=== PATIENT | female | born 2000 | race American Indian/Alaskan Native ===

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

== ENCOUNTER 2018-11-19 10:16 | Inpatient (IN) | payer OTHER ==
[~2018-11-19 10:16] MED LIST: Bupivacaine 0.25% 10 ML SDV ONE
[2018-11-19] MEDS ORDERED: Betamethasone Acetate/Betamethasone Sod Phosphate 30 MG/5 ML MDV IM ONE (10:24)
[2018-11-19] MEDS ORDERED: Nalbuphine 10 MG/1 ML Vial IVPUSH PRN (10:24)
[2018-11-19] MEDS ORDERED: Ondansetron 4 MG/2 ML SDV IVPUSH PRN ×2 (10:24→23:24)
[2018-11-19] MEDS ORDERED: Sodium Chloride 0.9% 10 ML Syringe FLUSH PRN ×2 (10:24→22:39)
[2018-11-19] MEDS ORDERED: Oxytocin/Lactated Ringers 10 UNIT/1,000 ML BAG IV SCH ×2 (10:30→22:28)
[2018-11-19] MEDS ORDERED: Ampicillin 2 GM in Sodium Chloride 0.9% 100 ML IV ONE (10:30)
[2018-11-19] MEDS ORDERED: Ampicillin 2 GM AdvVial IV ONE (10:32)
[2018-11-19] MEDS ORDERED: Sodium Chloride 0.9% 100 ML ONE (10:32)
[2018-11-19] MEDS ORDERED: Betamethasone Acetate/Betamethasone Sod Phosphate 30 MG/5 ML MDV ONE (10:34)
[2018-11-19] MEDS: Lactated Ringers 1,000 ML IV SCH ×4 (10:40→20:17)
[2018-11-19] MEDS ORDERED: ePHEDrine 50 MG/ML SDV IVPUSH PRN (11:36)
[2018-11-19] MEDS ORDERED: fentaNYL 100 MCG/2 ML SDV EPIDUR PRN (11:36)
[2018-11-19] MEDS ORDERED: diphenhydrAMINE 50 MG/ML SDV IVPUSH PRN ×2 (11:36→23:24)
[2018-11-19] MEDS: Bupivacaine/fentaNYL/NS 100 ML Bag EPIDUR PRN ×2 (12:07→17:57)
--- NOTE | 2018-11-19 12:10 | PCM.PREANE ---
Preanesthetic Assessment - Procedure Proposed Procedure: kalpesh - Anesthesia/Transfusion/Family Hx Anesthesia History: Prior Anesthesia Without Reaction Family History of Anesthesia Reaction: No Transfusion History: No Prior Transfusion(s) - Review of Systems General: No Symptoms Pulmonary: No Symptoms Cardiovascular: No Symptoms Gastrointestinal: No Symptoms Neurological: No Symptoms Other: Reports: None - Physical Assessment Pulse: 70 O2 Sat by Pulse Oximetry: 99 Respiratory Rate: 20 Blood Pressure: 109/60 Height: 5 ft 6 in Weight: 70.307 kg ASA Class: 2 Mental Status: Alert & Oriented x3 Airway Class: Mallampati = 1 Dentition: Reports: Normal Dentition Thyro-Mental Finger Breadths: 3 Mouth Opening Finger Breadths: 3 ROM/Head Extension: Full Lungs: Clear to Auscultation, Normal Respiratory Effort Cardiovascular: Regular Rate, Regular Rhythm - Lab Values: Laboratory Last Values WBC 11.88 K/mm3 (3.98-10.04) H 11/19/18 10:40 RBC 3.89 M/mm3 (3.98-5.22) L 11/19/18 10:40 Hgb 10.4 gm/L (11.2-15.7) L 11/19/18 10:40 Hct 32.0 % (34.1-44.9) L 11/19/18 10:40 MCV 82.3 fl (79.4-94.8) 11/19/18 10:40 MCH 26.7 pg (25.6-32.2) 11/19/18 10:40 MCHC 32.5 g/dl (32.2-35.5) 11/19/18 10:40 RDW Std Deviation 42.7 fL (36.4-46.3) 11/19/18 10:40 Plt Count 288 K/mm3 (182-369) 11/19/18 10:40 MPV 9.3 fl (9.4-12.3) L 11/19/18 10:40 Hepatitis C Antibody Negative (NEGATIVE) 11/19/18 10:40 HIV-1 Ab Rapid Screen Negative (NEGATIVE) 11/19/18 10:40 Blood Type A POSITIVE 11/19/18 10:40 Gel Antibody Screen Negative 11/19/18 10:40 - Allergies Allergies/Adverse Reactions: Allergies Allergy/AdvReac Type Severity Reaction Status Date / Time avocado Allergy Hives Verified 09/29/17 07:33 banana Allergy Hives Verified 09/29/17 07:33 kiwi Allergy Hives Verified 09/29/17 07:33 raspberry Allergy Hives Verified 09/29/17 07:33 shrimp Allergy Hives Verified 09/29/17 07:33 strawberry Allergy Hives Verified 09/29/17 07:33 tuna oil Allergy Hives Verified 09/29/17 07:33 - Blood Blood Available: No - Acknowledgements Anesthesia Type Planned: Epidural Pt an Appropriate Candidate for the Planned Anesthesia: Yes Alternatives and Risks of Anesthesia Discussed w Pt/Guardian: Yes Pt/Guardian Understands and Agrees with Anesthesia Plan: Yes PreAnesthesia Questionnaire - Past Health History Medical/Surgical History: Denies Medical/Surgical History HEENT History: Reports: Allergic Rhinitis Cardiovascular History: Reports: None Respiratory History: Reports: Asthma Gastrointestinal History: Reports: GERD 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: 1 - Past Surgical History HEENT Surgical History: Reports: Oral Surgery - SUBSTANCE USE Smoking Status *Q: Current Every Day Smoker Tobacco Use Within Last Twelve Months: Cigarettes Second Hand Smoke Exposure: Yes Days Per Week of Alcohol Use: 0 Recreational Drug Use History: No - HOME MEDS Home Medications: Home Meds PNV95/Ferrous Fumarate/FA [ Vitamin Tablet] 1 each PO DAILY 09/29/17 [ History] Docusate Sodium [Colace] 100 mg PO BID PRN cap 10/01/17 [Rx] Ibuprofen [IJD: Ibuprofen] 600 mg PO Q4H PRN tablet 10/01/17 [Rx] Witch Ashley [Tucks] 1 pad TOP ASDIRECTED PRN pad 10/01/17 [Rx] - CURRENT (IN HOUSE) MEDS Current Meds: Current Medications Diphenhydramine HCl (Benadryl) 25 mg IVPUSH Q6H PRN PRN Reason: pruritis Ephedrine Sulfate (Ephedrine Sulfate) 5 mg IVPUSH ASDIRECTED PRN PRN Reason: Hypotension Fentanyl (Sublimaze) 100 mcg EPIDUR Q3H PRN PRN Reason: Pain Last Admin: 11/19/18 12:06 Dose: 100 mcg Fentanyl/Bupivacaine HCl (Fentanyl/Bupivacaine/Ns 2 Mcg-0.125% 100 Ml) 100 ml EPIDUR ASDIRECTED PRN PRN Reason: Pain Last Admin: 11/19/18 12:07 Dose: 100 ml Ampicillin Sodium 1 gm/ Sodium (Chloride) 100 mls @ 200 mls/hr IV Q4H JUNG Lactated Ringer's (Ringers, Lactated) 1,000 mls @ 100 mls/hr IV ASDIRECTED JUNG Last Admin: 11/19/18 11:32 Dose: 100 mls/hr Oxytocin/Lactated Ringer's (Pitocin In Lr 10 Units/1,000 Ml) 10 unit in 1,000 mls @ 500 mls/hr IV .CONTINUOUS JUNG Nalbuphine HCl (Nubain) 10 mg IVPUSH Q2H PRN PRN Reason: Pain Last Admin: 11/19/18 10:39 Dose: 10 mg Ondansetron HCl (Zofran) 4 mg IVPUSH Q4H PRN PRN Reason: Nausea/Vomiting Sodium Chloride (Saline Flush) 10 ml FLUSH ASDIRECTED PRN PRN Reason: Keep Vein Open Discontinued Medications Ampicillin Sodium (Ampicillin) Confirm Administered Dose 2 gm IV .STK-MED ONE Stop: 11/19/18 10:33 Betamethasone Acet/Betameth SodPhos ([place] Soluspan 6 Mg/Ml) 12 mg IM ONETIME ONE Stop: 11/19/18 10:25 Last Admin: 11/19/18 10:46 Dose: 12 mg Betamethasone Acet/Betameth SodPhos ([place] Soluspan 6 Mg/Ml) Confirm Administered Dose 30 mg .ROUTE .[employer] ONE Stop: 11/19/18 10:35 Ampicillin Sodium 2 gm/ Sodium (Chloride) 100 mls @ 200 mls/hr IV ONETIME ONE Stop: 11/19/18 10:59 Last Admin: 11/19/18 10:39 Dose: 200 mls/hr Sodium Chloride (Normal Saline) Confirm Administered Dose 100 mls @ as directed .ROUTE .[employer] ONE Stop: 11/19/18 10:33
--- NOTE | 2018-11-19 12:57 | PCM.LDHP ---
L&D History of Present Illness - General Date of Service: 11/19/18 Admit Problem/Dx: Patient Status Order with Admit Dx/Problem 11/19/18 10:25 Patient Status [ADT] Routine Admission Diagnosis/Problem Admission Diagnosis/Problem labor Source of Information: Patient History Limitations: Reports: No Limitations - History of Present Illness Introduction:: Patient is a 17 y/o at uncertain gestational age who presents in labor. Patient's first was without care, but eventual delivery of a 3.13 kg baby girl presumed to be full term. This was in 09/2017. Patient without care in this . States did have a few appointments in [place], but when that clinic called they have only scant information. They do have it documented that her LMP was 01/07. This would make her 45 weeks gestation at this time. They have a positive test on May 07 which was done as patient noted 3 months of amenorrhea. They have no other test results or information on her. Patient presented to L&D yesterday due to concerns for contractions. At that time US was done which showed a baby measuring at about 35 0/7 wks and with oligohydramnios and fluid of only 2 cm. A urine drug screen was positive for opiates. Eventually she was discharged to home once contractions resolved. Called an ambulance today as she was having regular painful contractions. When arrived to L&D appeared very uncomfortable and so was admitted. Now comfortable with epidural in place. Pain Score: 10 - Related Data Allergies/Adverse Reactions: Allergies Allergy/AdvReac Type Severity Reaction Status Date / Time avocado Allergy Hives Verified 11/19/18 15:17 banana Allergy Hives Verified 11/19/18 15:17 kiwi Allergy Hives Verified 11/19/18 15:17 raspberry Allergy Hives Verified 11/19/18 15:17 shrimp Allergy Hives Verified 11/19/18 15:17 strawberry Allergy Hives Verified 11/19/18 15:17 tuna oil Allergy Hives Verified 11/19/18 15:17 Home Medications: Home Meds PNV95/Ferrous Fumarate/FA [ Vitamin Tablet] 1 each PO DAILY 09/29/17 [ History] Past Medical History HEENT History: Reports: Allergic Rhinitis Respiratory History: Reports: Asthma Gastrointestinal History: Reports: GERD 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 LMP (Approximate): Psychiatric History: Reports: Anxiety - Past Surgical History HEENT Surgical History: Reports: Oral Surgery, Other (See Below) (tympanostomy) Social & Family History - Family History Family Medical History: Noncontributory - Tobacco Use Smoking Status *Q: Current Every Day Smoker Second Hand Smoke Exposure: Yes - Caffeine Use Caffeine Use: Reports: Coffee, Energy Drinks, Soda, Tea - Alcohol Use Alcohol Use History: No Days Per Week of Alcohol Use: 0 - Recreational Drug Use Recreational Drug Use: No - Living Situation & Occupation Living situation: Reports: Single, with Family Occupation: Employed H&P Review of Systems - Review of Systems: Review Of Systems: See Below General: Reports: No Symptoms Pulmonary: Reports: No Symptoms Cardiovascular: Reports: No Symptoms Gastrointestinal: Reports: No Symptoms Genitourinary: Reports: No Symptoms Musculoskeletal: Reports: No Symptoms Psychiatric: Reports: No Symptoms L&D Exam - Exam Exam: See Below - Vital Signs Vital Signs: Last Vital Signs Temp Pulse 70 11/19/18 12:10 Resp 20 11/19/18 12:10 BP 109/60 11/19/18 12:10 Pulse Ox 99 11/19/18 12:10 Weight: 70.307 kg - OB Specific Contraction Intensity: Moderate to Strong Movement: Active Heart Tones: Present Heart Tones per Min: 130 Heart Rate (FHR) Variability: Moderate (6-25 bmp) Presentation: Vertex - Bhatt Score Bhatt Score Cervix Position: Midposition Bhatt Score Consistency: Soft Bhatt Score Effacement: >80% Bhatt Score Dilation: > 5 cm Bhatt Score Infant's Station: -2 Bhatt Score Total: 10 - Exam General: Alert, Oriented, Cooperative Lungs: Clear to Auscultation, Normal Respiratory Effort Cardiovascular: Regular Rate, Regular Rhythm GI/Abdominal Exam: Soft, Non-Tender Genitourinary: Normal external exam Extremities: Normal Inspection Skin: Warm, Dry, Intact - Patient Data Lab Results Last 24 hrs: Laboratory Results - last 24 hr 11/19/18 11/19/18 11/19/18 Range/Units 10:40 10:40 10:40 WBC 11.88 H (3.98-10.04) K/mm3 RBC 3.89 L (3.98-5.22) M/mm3 Hgb 10.4 L (11.2-15.7) gm/L Hct 32.0 L (34.1-44.9) % MCV 82.3 (79.4-94.8) fl MCH 26.7 (25.6-32.2) pg MCHC 32.5 (32.2-35.5) g/dl RDW Std Deviation 42.7 (36.4-46.3) fL Plt Count 288 (182-369) K/mm3 MPV 9.3 L (9.4-12.3) fl Hepatitis C Antibody Negative (NEGATIVE) HIV-1 Ab Rapid Screen Negative (NEGATIVE) Blood Type A POSITIVE Gel Antibody Screen Negative Result Diagrams: 11/19/18 10:40 - Problem List (1) Currently in third trimester with unknown gestational age SNOMED Code(s): 932831527, 840871599 ICD Code: Z34.93 - ENCNTR FOR SUPRVSN OF NORMAL PREG, UNSP, THIRD TRIMESTER Status: Acute Current Visit: Yes (2) Insufficient care SNOMED Code(s): 2176148777716 ICD Code: O09.30 - SUPRVSN OF PREG W INSUFFICIENT ANTENAT CARE, UNSP TRIMESTER Status: Acute Current Visit: Yes Qualifiers: Trimester: third trimester Qualified Code(s): O09.33 - Supervision of with insufficient care, third trimester (3) Positive urine drug screen SNOMED Code(s): 839922885, 065125476, 169908993 ICD Code: R82.5 - ELEVATED URINE LEVELS OF DRUG/MEDS/BIOL SUBST Status: Acute Current Visit: Yes Problem List Initiated/Reviewed/Updated: Yes Orders Last 24hrs: Active Orders 24 hr Category Date Time Status Patient Status [ADT] Routine ADT 11/19/18 10:25 Active Activity as Tolerated [RC] PFP Care 11/19/18 10:25 Active Communication Order [RC] ASDIRECTED Care 11/19/18 10:25 Active Heart Tones [RC] ASDIRECTED Care 11/19/18 10:25 Active Non Stress Test [RC] PER UNIT ROUTINE Care 11/19/18 10:25 Active Notify Provider [RC] ASDIRECTED Care 11/19/18 11:36 Active Notify Provider [RC] PFP Care 11/19/18 10:25 Active Notify Provider [RC] PRN Care 11/19/18 10:25 Active Peripheral IV Care [RC] . DIRECTED Care 11/19/18 10:25 Active Vital Signs [RC] PER UNIT ROUTINE Care 11/19/18 10:25 Active Regular Diet [DIET] Diet 11/19/18 Breakfast Active DRUG SCREEN, URINE REFLEX [URCHEM] Routine Lab 11/19/18 11:20 Received GROUP B STREP BY PCR [MOLEC] Stat Lab 11/19/18 10:43 Received HEPATITIS B SURFACE AG [CHEM] Routine Lab 11/19/18 10:40 Received RAPID PLASMA REAGIN,RPR [CHEM] Routine Lab 11/19/18 10:40 Received RUBELLA ANTIBODY IGG [CHEM] Routine Lab 11/19/18 10:40 Received Ampicillin 1 gm Med 11/19/18 14:30 Active Sodium Chloride 0.9% [Normal Saline] 100 ml IV Q4H Bupivacaine/fentaNYL/NS [fentaNYL/Bupivacaine/NS 2 MCG- Med 11/19/18 11:36 Active 0.125% 100 ML] 100 ml EPIDUR ASDIRECTED PRN Lactated Ringers [Ringers, Lactated] 1,000 ml Med 11/19/18 10:30 Active IV ASDIRECTED Nalbuphine [Nubain] Med 11/19/18 10:24 Active 10 mg IVPUSH Q2H PRN Ondansetron [Zofran] Med 11/19/18 10:24 Active 4 mg IVPUSH Q4H PRN Oxytocin/Lactated Ringers [Pitocin in LR 10 Units/1,000 Med 11/19/18 10:30 Active ML] 10 unit in 1,000 ml IV .CONTINUOUS Sodium Chloride 0.9% [Saline Flush] Med 11/19/18 10:24 Active 10 ml FLUSH ASDIRECTED PRN diphenhydrAMINE [Benadryl] Med 11/19/18 11:36 Active 25 mg IVPUSH Q6H PRN ePHEDrine [ePHEDrine sulfate] Med 11/19/18 11:36 Active 5 mg IVPUSH ASDIRECTED PRN fentaNYL [Sublimaze] Med 11/19/18 11:36 Active 100 mcg EPIDUR Q3H PRN Electronic Heart Tones Ext w TOCO [WOMSER] Oth 11/19/18 10:25 Ordered Routine Electronic Heart Tones Internal [WOMSER] Per Unit Oth 11/19/18 10:25 Ordered Routine Peripheral IV Insertion Adult [OM.PC] Routine Oth 11/19/18 10:25 Ordered Resuscitation Status Routine Resus Stat 11/19/18 10:24 Ordered Medication Orders Diphenhydramine HCl (Benadryl) 25 mg IVPUSH Q6H PRN PRN Reason: pruritis Ephedrine Sulfate (Ephedrine Sulfate) 5 mg IVPUSH ASDIRECTED PRN PRN Reason: Hypotension Last Admin: 11/19/18 12:36 Dose: 5 mg Fentanyl (Sublimaze) 100 mcg EPIDUR Q3H PRN PRN Reason: Pain Last Admin: 11/19/18 12:06 Dose: 100 mcg Fentanyl/Bupivacaine HCl (Fentanyl/Bupivacaine/Ns 2 Mcg-0.125% 100 Ml) 100 ml EPIDUR ASDIRECTED PRN PRN Reason: Pain Last Admin: 11/19/18 12:07 Dose: 100 ml Ampicillin Sodium 1 gm/ Sodium (Chloride) 100 mls @ 200 mls/hr IV Q4H JUNG Lactated Ringer's (Ringers, Lactated) 1,000 mls @ 100 mls/hr IV ASDIRECTED JUNG Last Admin: 11/19/18 11:32 Dose: 100 mls/hr Infusion: 11/19/18 11:32 Dose: 100 mls/hr Admin: 11/19/18 10:40 Dose: 100 mls/hr Oxytocin/Lactated Ringer's (Pitocin In Lr 10 Units/1,000 Ml) 10 unit in 1,000 mls @ 500 mls/hr IV .CONTINUOUS JUNG Nalbuphine HCl (Nubain) 10 mg IVPUSH Q2H PRN PRN Reason: Pain Last Admin: 11/19/18 10:39 Dose: 10 mg Ondansetron HCl (Zofran) 4 mg IVPUSH Q4H PRN PRN Reason: Nausea/Vomiting Sodium Chloride (Saline Flush) 10 ml FLUSH ASDIRECTED PRN PRN Reason: Keep Vein Open Assessment/Plan Comment:: 17 y/o at uncertain gestational age (35 weeks based on US, possibly up to term based on LMP) who presents in labor. Given degree of discomfort it was decided to not transfer patient on to [place] as there was concern for quick delivery given multiparous. GBS swab was collected and she was started on Ampicillin given possibility of being . Also given dose of BMTZ as uncertain of dates. Full new ob lab panel completed. Repeat UDS today as was positive for opiates yesterday. Patient did make change form 3 cm to 5 cm on my assessment. Will defer AROM for now. Will potentially perform later in labor course if needed.
[2018-11-19] MEDS: Ampicillin 1 GM in Sodium Chloride 0.9% 100 ML IV SCH ×3 (14:45→21:55)
--- NOTE | 2018-11-19 16:31 | PCM.PNLD ---
Labor Progress Note - VS & Meds Vital Signs: Last Vital Signs Temp 36.4 C 11/19/18 10:25 Pulse 72 11/19/18 14:00 Resp 20 11/19/18 12:10 BP 113/67 11/19/18 14:00 Pulse Ox 99 11/19/18 12:10 Active Medications: Current Medications Diphenhydramine HCl (Benadryl) 25 mg IVPUSH Q6H PRN PRN Reason: pruritis Ephedrine Sulfate (Ephedrine Sulfate) 5 mg IVPUSH ASDIRECTED PRN PRN Reason: Hypotension Last Admin: 11/19/18 12:36 Dose: 5 mg Fentanyl (Sublimaze) 100 mcg EPIDUR Q3H PRN PRN Reason: Pain Last Admin: 11/19/18 12:06 Dose: 100 mcg Fentanyl/Bupivacaine HCl (Fentanyl/Bupivacaine/Ns 2 Mcg-0.125% 100 Ml) 100 ml EPIDUR ASDIRECTED PRN PRN Reason: Pain Last Admin: 11/19/18 12:07 Dose: 100 ml Ampicillin Sodium 1 gm/ Sodium (Chloride) 100 mls @ 200 mls/hr IV Q4H JUNG Last Admin: 11/19/18 14:45 Dose: 200 mls/hr Lactated Ringer's (Ringers, Lactated) 1,000 mls @ 100 mls/hr IV ASDIRECTED JUNG Last Admin: 11/19/18 14:46 Dose: 100 mls/hr Oxytocin/Lactated Ringer's (Pitocin In Lr 10 Units/1,000 Ml) 10 unit in 1,000 mls @ 500 mls/hr IV .CONTINUOUS [facility] Nalbuphine HCl (Nubain) 10 mg IVPUSH Q2H PRN PRN Reason: Pain Last Admin: 11/19/18 10:39 Dose: 10 mg Ondansetron HCl (Zofran) 4 mg IVPUSH Q4H PRN PRN Reason: Nausea/Vomiting Last Admin: 11/19/18 15:27 Dose: 4 mg Sodium Chloride (Saline Flush) 10 ml FLUSH ASDIRECTED PRN PRN Reason: Keep Vein Open Discontinued Medications Ampicillin Sodium (Ampicillin) Confirm Administered Dose 2 gm IV .STK-MED ONE Stop: 11/19/18 10:33 Last Admin: 11/19/18 14:46 Dose: Not Given Betamethasone Acet/Betameth SodPhos (Celestone Soluspan 6 Mg/Ml) 12 mg IM ONETIME ONE Stop: 11/19/18 10:25 Last Admin: 11/19/18 10:46 Dose: 12 mg Betamethasone Acet/Betameth SodPhos (Celestone Soluspan 6 Mg/Ml) Confirm Administered Dose 30 mg .ROUTE .STK-MED ONE Stop: 11/19/18 10:35 Last Admin: 11/19/18 14:46 Dose: Not Given Ampicillin Sodium 2 gm/ Sodium (Chloride) 100 mls @ 200 mls/hr IV ONETIME ONE Stop: 11/19/18 10:59 Last Admin: 11/19/18 10:39 Dose: 200 mls/hr Sodium Chloride (Normal Saline) Confirm Administered Dose 100 mls @ as directed .ROUTE .STK-MED ONE Stop: 11/19/18 10:33 Last Admin: 11/19/18 14:46 Dose: Not Given - Uterine Contractions Uterine Monitoring Mode: External [place] Contraction Intensity: Moderate to Strong Uterine Resting Tone: Soft - Monitoring Monitor Mode: External Ultrasound Heart Rate (FHR) Baseline: 130 Heart Rate (FHR) Variability: Moderate (6-25 bmp) Accelerations: Present, 15x15 Decelerations: None Strip Review: Category I - Vaginal Exam Dilation (cm): 6-7 Effacement (Percent): 75 Station: -2 Cervical Position: Midposition - Labor Progress (Free Text) Labor Progress: Doing well. AROM performed with release of scant amount of thick meconium stained fluid
[2018-11-19] MEDS ORDERED: ceFAZolin 2 GM in Premix Bag 1 BAG IV ONE (22:39)
[2018-11-19] MEDS ORDERED: Metoclopramide 10 MG/2 ML SDV IVPUSH ONE (22:39)
[2018-11-19] MEDS ORDERED: Citric Acid/Sodium Citrate Solution 30 ML Cup PO ONE (22:39)
--- NOTE | 2018-11-19 22:41 | PCM.SN ---
- Free Text/Narrative Note: [id number] Patient feeling strong urge to push, but with small anterior lip. Was allowed to push for about 30 minutes, but anterior lip at that time did not stay reduced. Was moved into other positions and tried to make more comfortable and a break taken from pushing for about 30 minutes. Reassessed and anterior lip gone. Started pushing again, but only pushed for about 40 minutes or so before declined pushing further. States tired and does not want to push any further. Wants a . Strongly encouraged patient to continue working towards vaginal delivery, but she declines. OR crew alerted. Comfort Lincoln MD
[2018-11-19] MEDS ORDERED: Lactated Ringers 1,000 ML IV SCH (22:45)
--- NOTE | 2018-11-19 22:50 | PCM.OPNOTE ---
- General Post-Op/Procedure Note Date of Surgery/Procedure: 11/19/18 Operative Procedure(s): Primary low transverse Findings: Baby boy in a vertex presentation. of 9 & 9, weight of 6 lbs 1 oz. Normal appearance of the uterus, fallopian tubes, and ovaries. Pre Op Diagnosis: Uncertain dates in 3rd trimester. Insufficient care. Meconium stained fluid. FTP in 2nd stage Post-Op Diagnosis: Same. Uterine atony Anesthesia Technique: Epidural Primary Surgeon: Comfort Lincoln Secondary Surgeon: Francine Tate Anesthesia Provider: Deborah Alarcon Reason Hoop Bender Tank Was Necessary: Speed and safety of procedure Pathology: Cord blood collected. Placenta discarded Fluid Replacement, Intraop: 1,700 Output, Urine Amount: 75 EBL in mLs: 700 Complications: None Condition: Good Free Text/Narrative:: The risks, benefits, indications, potential complications, and alternatives were explained to the patient and informed consent obtained. After induction of anesthesia, the patient was placed in a supine position and then draped and prepped in the usual sterile manner. A Pfannenstiel incision was made and carried down through the subcutaneous tissue to the fascia. Fascial incision was made and extended transversely. The fascia was from the underlying rectus tissue superiorly and inferiorly. The peritoneum was identified and entered. Peritoneal incision was extended longitudinally. The utero-vesical peritoneal reflection was incised transversely and the bladder flap was bluntly freed from the lower uterine segment. A low transverse uterine incision was made sharply with a scalpel and extended bluntly in a cephalocaudad direction. A baby boy was delivered from a vertex presentation with APGARS as above. After the umbilical cord was clamped and cut cord blood was obtained for evaluation. The placenta was removed intact and appeared normal. The uterus was exteriorized and cleared of clots. The uterine outline, tubes and ovaries appeared normal. The was very poor uterine tone at this time. The uterine incision was closed with running locked sutures of 0 Vicryl. Despite this uterine tone remained poor. Patient given an IM dose of methergine. Next second imbricating layer of 0 vicryl placed. Hemostasis noted. Again, poor lower uterine segment tone noted and so patient given 600 mcg of buccal cytotec. The uterus was then placed back into the abdomen. The infracolic gutters were cleared of blood clots. The fascia was then reapproximated with running sutures of 0 Vicryl. The subcutaneous tissue was irrigated with sterile warm normal saline, hemostasis obtained with cautery. The skin was reapproximated with running Subcuticular 4 -0 monocryl sutures. Instrument, sponge, and needle counts were correct prior the abdominal closure and at the conclusion of the case. Prior to exiting OR aggressive fundal massage done which released a large amount of clot. Uterine tone and bleeding appropriate afterwards.
[2018-11-19] MEDS ORDERED: Oxytocin 10 Units/1 ML SDV ONE (22:51)
[2018-11-19] MEDS ORDERED: Ketorolac 30 MG/ML SDV ONE (22:51)
[2018-11-19] MEDS ORDERED: Ondansetron 4 MG/2 ML SDV ONE (22:51)
[2018-11-19] MEDS ORDERED: Lactated Ringers 2,000 ML ONE (22:51)
[2018-11-19] MEDS ORDERED: ceFAZolin 1 GM Vial ONE (22:51)
[2018-11-19] MEDS ORDERED: Sodium Bicarbonate 8.4% 50 MEQ/50 ML SDV ONE (22:52)
[2018-11-19] MEDS ORDERED: Lidocaine 2% with EPINEPHrine 1:200,000 20 ML SDV ONE (22:52)
[2018-11-19] MEDS ORDERED: fentaNYL 100 MCG/2 ML SDV ONE (22:53)
[2018-11-19] MEDS ORDERED: Morphine PF 1 MG/ML Amp ONE (22:56)
[2018-11-19] MEDS ORDERED: ePHEDrine/Normal Saline 25 MG/5 ML Syringe ONE (23:17)
[2018-11-19] MEDS ORDERED: fentaNYL 100 MCG/2 ML SDV IVPUSH PRN (23:24)
[2018-11-19] MEDS ORDERED: Methylergonovine 0.2 MG/1 ML Amp ONE (23:35)
[2018-11-19] MEDS ORDERED: Misoprostol 200 MCG Tab ONE (23:40)
--- NOTE | 2018-11-20 00:20 | PCM.POSTAN ---
POST ANESTHESIA ASSESSMENT - MENTAL STATUS Mental Status: Alert, Oriented - VITAL SIGNS Pulse Rate: 81 SaO2: 100 Resp Rate: 18 Blood Pressure: 129/75 Temperature: 98.7 F - RESPIRATORY Respiratory Status: Respiratory Rate WNL, Airway Patent, O2 Saturation Stable, Supplemental Oxygen - CARDIOVASCULAR CV Status: Pulse Rate WNL, Blood Pressure Stable - GASTROINTESTINAL GI Status: No Symptoms - PAIN Pain Score: 0 - POST OP HYDRATION Hydration Status: Adequate & Stable
[2018-11-20] MEDS ORDERED: Ondansetron 4 MG/2 ML SDV IV PRN (01:15)
[2018-11-20] MEDS ORDERED: Docusate Sodium 100 MG Cap PO PRN (01:15)
[2018-11-20] MEDS ORDERED: Lanolin 100% Cream 7 GM Tube TOP PRN (01:15)
[2018-11-20] MEDS ORDERED: Dextrose 5%-Lactated Ringers 1,000 ML IV SCH (01:15)
[2018-11-20] MEDS: Acetaminophen/oxyCODONE 325-5 MG Tab PO PRN ×4 (04:47→21:47)
[2018-11-20] MEDS: Ketorolac 30 MG/ML SDV IVPUSH SCH ×3 (05:32→17:32)
--- NOTE | 2018-11-20 07:36 | PCM48HPAN ---
Post Anesthesia Note - EVALUATION WITHIN 48HRS OF ANESTHETIC Vital Signs in Normal Range: Yes Patient Participated in Evaluation: Yes Respiratory Function Stable: Yes Airway Patent: Yes Cardiovascular Function Stable: Yes Hydration Status Stable: Yes Pain Control Satisfactory: Yes Nausea and Vomiting Control Satisfactory: Yes Mental Status Recovered: Yes Pulse Rate: 106 Resp Rate: 16 Temperature: 37.1 C Blood Pressure: 119/60
--- NOTE | 2018-11-20 09:16 | PCM.PNPP ---
- General Info Date of Service: 11/20/18 Functional Status: Reports: Pain Controlled, Tolerating Diet - Review of Systems General: Reports: No Symptoms Pulmonary: Reports: No Symptoms Cardiovascular: Reports: No Symptoms Gastrointestinal: Reports: Abdominal Pain Genitourinary: Reports: No Symptoms Musculoskeletal: Reports: No Symptoms Neurological: Reports: No Symptoms - Patient Data Vital Signs - Most Recent: Last Vital Signs Temp 37.1 C 11/20/18 07:36 Pulse 106 H 11/20/18 07:36 Resp 16 11/20/18 07:36 BP 119/60 11/20/18 07:36 Pulse Ox 98 11/20/18 07:00 Weight - Most Recent: 70.307 kg I&O - Last 24 Hours: Intake & Output 11/19/18 11/20/18 11/20/18 22:59 06:59 14:59 Intake Total 883 320 3754 Output Total 1075 75 Balance 320 -825 1625 Lab Results - Last 24 Hours: Laboratory Results - last 24 hr 11/19/18 11/19/18 11/19/18 Range/Units 10:40 10:40 10:40 WBC 11.88 H (3.98-10.04) K/mm3 RBC 3.89 L (3.98-5.22) M/mm3 Hgb 10.4 L (11.2-15.7) gm/L Hct 32.0 L (34.1-44.9) % MCV 82.3 (79.4-94.8) fl MCH 26.7 (25.6-32.2) pg MCHC 32.5 (32.2-35.5) g/dl RDW Std Deviation 42.7 (36.4-46.3) fL Plt Count 288 (182-369) K/mm3 MPV 9.3 L (9.4-12.3) fl Urine Opiates Screen (IWCADX=673) Ur Buprenorphine Scrn (CUTOFF=10) Ur Oxycodone Screen (PZC6UK=709) Urine Methadone Screen (RSXZIO=388) Ur Propoxyphene Screen (FONNYT=296) Ur Barbiturates Screen (KQARSF=302) Ur Tricyclics Screen (SPYQKA=244) Ur Phencyclidine Scrn (CUTOFF=25) Ur Amphetamine Screen (VYMFRW=212) U Methamphetamines Scrn (EOOZUY=957) U Benzodiazepines Scrn (FESKQJ=935) U Cocaine Metab Screen (ZBWSIO=041) U Marijuana (THC) Screen (CUTOFF=50) RPR (NONREACTIVE) Hepatitis C Antibody Negative (NEGATIVE) HIV-1 Ab Rapid Screen Negative (NEGATIVE) Blood Type A POSITIVE Gel Antibody Screen Negative 11/19/18 11/19/18 Range/Units 10:40 11:20 WBC (3.98-10.04) K/mm3 RBC (3.98-5.22) M/mm3 Hgb (11.2-15.7) gm/L Hct (34.1-44.9) % MCV (79.4-94.8) fl MCH (25.6-32.2) pg MCHC (32.2-35.5) g/dl RDW Std Deviation (36.4-46.3) fL Plt Count (182-369) K/mm3 MPV (9.4-12.3) fl Urine Opiates Screen Negative (MNWIEZ=595) Ur Buprenorphine Scrn Negative (CUTOFF=10) Ur Oxycodone Screen Negative (XBO3VN=228) Urine Methadone Screen Negative (YTQWDV=996) Ur Propoxyphene Screen Negative (WFMRLC=119) Ur Barbiturates Screen Negative (BZVOQZ=128) Ur Tricyclics Screen Negative (NXLXXP=534) Ur Phencyclidine Scrn Negative (CUTOFF=25) Ur Amphetamine Screen Negative (CDSCVE=970) U Methamphetamines Scrn Negative (PMAJUV=712) U Benzodiazepines Scrn Negative (DGZBAF=644) U Cocaine Metab Screen Negative (SKYEMV=036) U Marijuana (THC) Screen Negative (CUTOFF=50) RPR Non-reactive (NONREACTIVE) Hepatitis C Antibody (NEGATIVE) HIV-1 Ab Rapid Screen (NEGATIVE) Blood Type Gel Antibody Screen Med Orders - Current: Current Medications Diphenhydramine HCl (Benadryl) 25 mg IVPUSH Q6H PRN PRN Reason: pruritis Docusate Sodium (Colace) 100 mg PO Q12H PRN PRN Reason: Constipation Emollient Ointment (Lansinoh Hpa) 0 gm TOP ASDIRECTED PRN PRN Reason: Sore Nipples Fentanyl (Sublimaze) 50 mcg IVPUSH Q5M PRN PRN Reason: Pain Dextrose/Lactated Ringer's (Dextrose 5%-Lactated Ringers) 1,000 mls @ 125 mls/ hr IV ASDIRECTED [facility] Stop: 11/20/18 09:14 Last Admin: 11/20/18 03:18 Dose: 125 mls/hr Ibuprofen (Motrin) 600 mg PO Q6H PRN PRN Reason: mild pain or fever Ketorolac Tromethamine (Toradol) 30 mg IVPUSH Q6H [facility] Stop: 11/20/18 17:31 Last Admin: 11/20/18 05:32 Dose: 30 mg Ondansetron HCl (Zofran) 4 mg IVPUSH ONETIME PRN PRN Reason: Nausea/Vomiting Ondansetron HCl (Zofran) 4 mg IV Q8H PRN PRN Reason: Nausea/Vomiting Oxycodone/Acetaminophen (Percocet 325-5 Mg) 2 tab PO Q4H PRN PRN Reason: Pain (moderate 4-6) Last Admin: 11/20/18 04:47 Dose: 2 tab Discontinued Medications Ampicillin Sodium (Ampicillin) Confirm Administered Dose 2 gm IV .STK-MED ONE Stop: 11/19/18 10:33 Last Admin: 11/19/18 14:46 Dose: Not Given Betamethasone Acet/Betameth SodPhos (Cel[place] Soluspan 6 Mg/Ml) 12 mg IM ONETIME ONE Stop: 11/19/18 10:25 Last Admin: 11/19/18 10:46 Dose: 12 mg Betamethasone Acet/Betameth SodPhos (Celestone Soluspan 6 Mg/Ml) Confirm Administered Dose 30 mg .ROUTE .STK-MED ONE Stop: 11/19/18 10:35 Last Admin: 11/19/18 14:46 Dose: Not Given Cefazolin Sodium (Ancef) Confirm Administered Dose 2 gm .ROUTE .STK-MED ONE Stop: 11/19/18 22:52 Citric Acid/Sodium Citrate (Bicitra Solution) 30 ml PO ONETIME ONE Stop: 11/19/18 22:40 Last Admin: 11/19/18 22:38 Dose: 30 ml Diphenhydramine HCl (Benadryl) 25 mg IVPUSH Q6H PRN PRN Reason: pruritis Ephedrine Sulfate (Ephedrine Sulfate) 5 mg IVPUSH ASDIRECTED PRN PRN Reason: Hypotension Last Admin: 11/19/18 12:36 Dose: 5 mg Ephedrine Sulfate (Ephedrine In Ns) Confirm Administered Dose 25 mg .ROUTE .STK- MED ONE Stop: 11/19/18 23:18 Fentanyl (Sublimaze) 100 mcg EPIDUR Q3H PRN PRN Reason: Pain Last Admin: 11/19/18 12:06 Dose: 100 mcg Fentanyl (Sublimaze) Confirm Administered Dose 100 mcg .ROUTE .STK-MED ONE Stop: 11/19/18 22:54 Fentanyl/Bupivacaine HCl (Fentanyl/Bupivacaine/Ns 2 Mcg-0.125% 100 Ml) 100 ml EPIDUR ASDIRECTED PRN PRN Reason: Pain Last Admin: 11/19/18 17:57 Dose: 100 ml Ampicillin Sodium 2 gm/ Sodium (Chloride) 100 mls @ 200 mls/hr IV ONETIME ONE Stop: 11/19/18 10:59 Last Admin: 11/19/18 10:39 Dose: 200 mls/hr Ampicillin Sodium 1 gm/ Sodium (Chloride) 100 mls @ 200 mls/hr IV Q4H JUNG Last Admin: 11/19/18 21:55 Dose: 200 mls/hr Lactated Ringer's (Ringers, Lactated) 1,000 mls @ 100 mls/hr IV ASDIRECTED JUNG Last Admin: 11/19/18 20:17 Dose: 100 mls/hr Oxytocin/Lactated Ringer's (Pitocin In Lr 10 Units/1,000 Ml) 10 unit in 1,000 mls @ 500 mls/hr IV .CONTINUOUS JUNG Sodium Chloride (Normal Saline) Confirm Administered Dose 100 mls @ as directed .ROUTE .ST-MED ONE Stop: 11/19/18 10:33 Last Admin: 11/19/18 14:46 Dose: Not Given Oxytocin 10 unit/ Lactated (Ringer's) 1,001 mls @ 12.01 mls/hr IV TITRATE JUNG; Protocol Oxytocin/Lactated Ringer's (Pitocin In Lr 10 Units/1,000 Ml) 10 unit in 1,000 mls @ 12 mls/hr IV TITRATE JUNG; Protocol Last Titration: 11/19/18 22:44 Dose: 0 munits/min, 0 mls/hr Cefazolin Sodium/Dextrose 2 gm (/ Premix) 50 mls @ 100 mls/hr IV ONETIME ONE Stop: 11/19/18 23:08 Lactated Ringer's (Ringers, Lactated) 1,000 mls @ 125 mls/hr IV ASDIRECTED JUNG Last Admin: 11/19/18 23:11 Dose: 999 mls/hr Lactated Ringer's (Ringers, Lactated) Confirm Administered Dose 2,000 mls @ as directed .ROUTE .STK-MED ONE Stop: 11/19/18 22:52 Ketorolac Tromethamine (Toradol) Confirm Administered Dose 30 mg .ROUTE .STK- MED ONE Stop: 11/19/18 22:52 Lidocaine/Epinephrine (Xylocaine-Mpf 2%-Epi 1:200,000) Confirm Administered Dose 20 ml .ROUTE .STK-MED ONE Stop: 11/19/18 22:53 Methylergonovine Maleate (Methergine) Confirm Administered Dose 0.2 mg .ROUTE .STK-MED ONE Stop: 11/19/18 23:36 Last Admin: 11/19/18 23:39 Dose: 0.2 mg Metoclopramide HCl (Reglan) 10 mg IVPUSH ONETIME ONE Stop: 11/19/18 22:40 Last Admin: 11/19/18 22:40 Dose: 10 mg Misoprostol (Cytotec) Confirm Administered Dose 600 mcg .ROUTE .STK-MED ONE Stop: 11/19/18 23:41 Last Admin: 11/19/18 23:42 Dose: 600 mcg Morphine Sulfate (Duramorph Pf) Confirm Administered Dose 1 mg .ROUTE .STK-MED ONE Stop: 11/19/18 22:57 Nalbuphine HCl (Nubain) 10 mg IVPUSH Q2H PRN PRN Reason: Pain Last Admin: 11/19/18 10:39 Dose: 10 mg Ondansetron HCl (Zofran) 4 mg IVPUSH Q4H PRN PRN Reason: Nausea/Vomiting Last Admin: 11/19/18 15:27 Dose: 4 mg Ondansetron HCl (Zofran) Confirm Administered Dose 4 mg .ROUTE .STK-MED ONE Stop: 11/19/18 22:52 Oxytocin (Pitocin) Confirm Administered Dose 10 unit .ROUTE .STK-MED ONE Stop: 11/19/18 22:52 Sodium Bicarbonate (Sodium Bicarbonate 8.4%) Confirm Administered Dose 50 meq .ROUTE .STK-MED ONE Stop: 11/19/18 22:53 Sodium Chloride (Saline Flush) 10 ml FLUSH ASDIRECTED PRN PRN Reason: Keep Vein Open Sodium Chloride (Saline Flush) 10 ml FLUSH ASDIRECTED PRN PRN Reason: Keep Vein Open - Infant Interaction Disposition, : to Nursery Support Person: Friend - Recovery Exam Fundal Tone: Firm Fundal Level: 2 Fingerbreadths Below Umbilicus Fundal Placement: Midline Lochia Amount: Scant, Small Lochia Color: Rubra/Red Perineum Description: Intact, Minimal Bruising/Swelling Bladder Status: Indwelling Catheter in Place Urinary Elimination: Indwelling Catheter - Exam General: Alert, Oriented, Cooperative Lungs: Clear to Auscultation, Normal Respiratory Effort Cardiovascular: Regular Rate, Regular Rhythm GI/Abdominal Exam: Soft, Tender (appropriate post op) Extremities: Normal Inspection Skin: Warm, Dry, Intact - Problem List & Annotations (1) Currently in third trimester with unknown gestational age SNOMED Code(s): 581142247, 383970717 Code(s): Z34.93 - ENCNTR FOR SUPRVSN OF NORMAL PREG, UNSP, THIRD TRIMESTER Status: Acute Current Visit: Yes (2) Insufficient care SNOMED Code(s): 5135868194967 Code(s): O09.30 - SUPRVSN OF PREG W INSUFFICIENT ANTENAT CARE, UNSP TRIMESTER Status: Acute Current Visit: Yes Qualifiers: Trimester: third trimester Qualified Code(s): O09.33 - Supervision of with insufficient care, third trimester (3) Positive urine drug screen SNOMED Code(s): 886275660, 584576894, 573321500 Code(s): R82.5 - ELEVATED URINE LEVELS OF DRUG/MEDS/BIOL SUBST Status: Acute Current Visit: Yes (4) Failure to progress in second stage of labor SNOMED Code(s): 070612104 Code(s): O62.2 - OTHER UTERINE INERTIA Status: Acute Current Visit: Yes - Problem List Review Problem List Initiated/Reviewed/Updated: Yes - My Orders Last 24 Hours: My Active Orders 11/19/18 10:24 Resuscitation Status Routine 11/19/18 10:25 Heart Tones [RC] ASDIRECTED 11/19/18 10:43 GROUP B STREP BY PCR [MOLEC] Stat 11/19/18 22:39 Communication Order [RC] ROUTINE Procedure Site Prep Instruct [RC] ASDIRECTED Verify Patient Consent Obtain [RC] PER UNIT ROUTINE Vital Signs [RC] PFP 11/19/18 22:40 Peripheral IV Care [RC] . DIRECTED 11/20/18 01:15 Activity as Tolerated [RC] .Routine Antiembolic Devices [RC] PER UNIT ROUTINE Communication Order [RC] PER UNIT ROUTINE Communication Order [RC] PER UNIT ROUTINE Intake and Output [RC] Q4H Notify Provider Intake and Out [RC] ASDIRECTED RT Incentive Spirometry [RC] Q2HWA Acetaminophen/oxyCODONE [Percocet 325-5 MG] 2 tab PO Q4H PRN Dextrose 5%-Lactated Ringers 1,000 ml IV ASDIRECTED Docusate Sodium [Colace] 100 mg PO Q12H PRN Lanolin [Lansinoh HPA] See Dose Instructions TOP ASDIRECTED PRN Ondansetron [Zofran] 4 mg IV Q8H PRN Assess Lochia [WOMSER] Per Unit Routine Assess Uterine Involution [WOMSER] Per Unit Routine Breast Pump [WOMSER] Per Unit Routine Heat Therapy [OM.PC] Per Unit Routine Medication Administration Instruction [OM.PC] Routine Peripheral IV Discontinue [OM.PC] Routine Sequential Compression Device [OM.PC] Per Unit Routine 11/20/18 05:30 Ketorolac [Toradol] 30 mg IVPUSH Q6H 11/20/18 10:21 CBC W/O DIFF,HEMOGRAM [HEME] Timed 11/20/18 23:30 Ibuprofen [Motrin] 600 mg PO Q6H PRN 11/20/18 Breakfast Regular Diet [DIET] 11/21/18 00:18 Urinary Catheter Removal [RC] Per Unit Routine - Assessment Assessment:: 17 y/o G2 now P2 POD#1 from [facility] - Plan Plan:: Post op * Routine cares * Bottle feeding * Discharge home in 2 days
[2018-11-20] MEDS: Ibuprofen 600 MG Tab PO PRN (21:48)
[2018-11-21] MEDS: Acetaminophen/oxyCODONE 325-5 MG Tab PO PRN ×2 (03:09→11:36)
--- NOTE | 2018-11-21 08:07 | PCM.PNPP ---
- General Info Date of Service: 11/21/18 Functional Status: Reports: Pain Controlled, Tolerating Diet, Ambulating, Urinating - Review of Systems General: Reports: No Symptoms Pulmonary: Reports: No Symptoms Cardiovascular: Reports: No Symptoms Gastrointestinal: Reports: Abdominal Pain (managed with medications ) Genitourinary: Reports: No Symptoms Musculoskeletal: Reports: No Symptoms Neurological: Reports: No Symptoms - Patient Data Vital Signs - Most Recent: Last Vital Signs Temp 36.6 C 11/20/18 20:00 Pulse 74 11/21/18 00:00 Resp 15 11/21/18 00:00 BP 121/70 11/21/18 00:00 Pulse Ox 100 11/21/18 00:00 Weight - Most Recent: 70.307 kg I&O - Last 24 Hours: Intake & Output 11/20/18 11/21/18 11/21/18 22:59 06:59 14:59 Intake Total 1620 Output Total 1875 Balance -255 Lab Results - Last 24 Hours: Laboratory Results - last 24 hr 11/19/18 11/20/18 Range/Units 10:43 10:44 WBC 20.58 H (3.98-10.04) K/mm3 RBC 3.09 L (3.98-5.22) M/mm3 Hgb 8.1 L D (11.2-15.7) gm/L Hct 25.6 L (34.1-44.9) % MCV 82.8 (79.4-94.8) fl MCH 26.2 (25.6-32.2) pg MCHC 31.6 L (32.2-35.5) g/dl RDW Std Deviation 42.8 (36.4-46.3) fL Plt Count 224 (182-369) K/mm3 MPV 9.3 L (9.4-12.3) fl Group B Strep (PCR) Negative (NEGATIVE) Med Orders - Current: Current Medications Diphenhydramine HCl (Benadryl) 25 mg IVPUSH Q6H PRN PRN Reason: pruritis Docusate Sodium (Colace) 100 mg PO Q12H PRN PRN Reason: Constipation Emollient Ointment (Lansinoh Hpa) 0 gm TOP ASDIRECTED PRN PRN Reason: Sore Nipples Fentanyl (Sublimaze) 50 mcg IVPUSH Q5M PRN PRN Reason: Pain Ibuprofen (Motrin) 600 mg PO Q6H PRN PRN Reason: mild pain or fever Last Admin: 11/20/18 21:48 Dose: 600 mg Ondansetron HCl (Zofran) 4 mg IVPUSH ONETIME PRN PRN Reason: Nausea/Vomiting Ondansetron HCl (Zofran) 4 mg IV Q8H PRN PRN Reason: Nausea/Vomiting Oxycodone/Acetaminophen (Percocet 325-5 Mg) 2 tab PO Q4H PRN PRN Reason: Pain (moderate 4-6) Last Admin: 11/21/18 03:09 Dose: 2 tab Discontinued Medications Ampicillin Sodium (Ampicillin) Confirm Administered Dose 2 gm IV .STK-MED ONE Stop: 11/19/18 10:33 Last Admin: 11/19/18 14:46 Dose: Not Given Betamethasone Acet/Betameth SodPhos (Celestone Soluspan 6 Mg/Ml) 12 mg IM ONETIME ONE Stop: 11/19/18 10:25 Last Admin: 11/19/18 10:46 Dose: 12 mg Betamethasone Acet/Betameth SodPhos (Celestone Soluspan 6 Mg/Ml) Confirm Administered Dose 30 mg .ROUTE .STK-MED ONE Stop: 11/19/18 10:35 Last Admin: 11/19/18 14:46 Dose: Not Given Cefazolin Sodium (Ancef) Confirm Administered Dose 2 gm .ROUTE .STK-MED ONE Stop: 11/19/18 22:52 Citric Acid/Sodium Citrate (Bicitra Solution) 30 ml PO ONETIME ONE Stop: 11/19/18 22:40 Last Admin: 11/19/18 22:38 Dose: 30 ml Diphenhydramine HCl (Benadryl) 25 mg IVPUSH Q6H PRN PRN Reason: pruritis Ephedrine Sulfate (Ephedrine Sulfate) 5 mg IVPUSH ASDIRECTED PRN PRN Reason: Hypotension Last Admin: 11/19/18 12:36 Dose: 5 mg Ephedrine Sulfate (Ephedrine In Ns) Confirm Administered Dose 25 mg .ROUTE .STK- MED ONE Stop: 11/19/18 23:18 Fentanyl (Sublimaze) 100 mcg EPIDUR Q3H PRN PRN Reason: Pain Last Admin: 11/19/18 12:06 Dose: 100 mcg Fentanyl (Sublimaze) Confirm Administered Dose 100 mcg .ROUTE .STK-MED ONE Stop: 11/19/18 22:54 Fentanyl/Bupivacaine HCl (Fentanyl/Bupivacaine/Ns 2 Mcg-0.125% 100 Ml) 100 ml EPIDUR ASDIRECTED PRN PRN Reason: Pain Last Admin: 11/19/18 17:57 Dose: 100 ml Ampicillin Sodium 2 gm/ Sodium (Chloride) 100 mls @ 200 mls/hr IV ONETIME ONE Stop: 11/19/18 10:59 Last Admin: 11/19/18 10:39 Dose: 200 mls/hr Ampicillin Sodium 1 gm/ Sodium (Chloride) 100 mls @ 200 mls/hr IV Q4H JUNG Last Admin: 11/19/18 21:55 Dose: 200 mls/hr Lactated Ringer's (Ringers, Lactated) 1,000 mls @ 100 mls/hr IV ASDIRECTED JUNG Last Admin: 11/19/18 20:17 Dose: 100 mls/hr Oxytocin/Lactated Ringer's (Pitocin In Lr 10 Units/1,000 Ml) 10 unit in 1,000 mls @ 500 mls/hr IV .CONTINUOUS JUNG Sodium Chloride (Normal Saline) Confirm Administered Dose 100 mls @ as directed .ROUTE .[facility] ONE Stop: 11/19/18 10:33 Last Admin: 11/19/18 14:46 Dose: Not Given Oxytocin 10 unit/ Lactated (Ringer's) 1,001 mls @ 12.01 mls/hr IV TITRATE JUNG; Protocol Oxytocin/Lactated Ringer's (Pitocin In Lr 10 Units/1,000 Ml) 10 unit in 1,000 mls @ 12 mls/hr IV TITRATE JUNG; Protocol Last Titration: 11/19/18 22:44 Dose: 0 munits/min, 0 mls/hr Cefazolin Sodium/Dextrose 2 gm (/ Premix) 50 mls @ 100 mls/hr IV ONETIME ONE Stop: 11/19/18 23:08 Lactated Ringer's (Ringers, Lactated) 1,000 mls @ 125 mls/hr IV ASDIRECTED JUNG Last Admin: 11/19/18 23:11 Dose: 999 mls/hr Lactated Ringer's (Ringers, Lactated) Confirm Administered Dose 2,000 mls @ as directed .ROUTE .STK-MED ONE Stop: 11/19/18 22:52 Dextrose/Lactated Ringer's (Dextrose 5%-Lactated Ringers) 1,000 mls @ 125 mls/ hr IV ASDIRECTED [facility] Stop: 11/20/18 09:14 Last Admin: 11/20/18 03:18 Dose: 125 mls/hr Ketorolac Tromethamine (Toradol) Confirm Administered Dose 30 mg .ROUTE .STK- MED ONE Stop: 11/19/18 22:52 Ketorolac Tromethamine (Toradol) 30 mg IVPUSH Q6H [facility] Stop: 11/20/18 17:31 Last Admin: 11/20/18 17:32 Dose: 30 mg Lidocaine/Epinephrine (Xylocaine-Mpf 2%-Epi 1:200,000) Confirm Administered Dose 20 ml .ROUTE .STK-MED ONE Stop: 11/19/18 22:53 Methylergonovine Maleate (Methergine) Confirm Administered Dose 0.2 mg .ROUTE .STK-MED ONE Stop: 11/19/18 23:36 Last Admin: 11/19/18 23:39 Dose: 0.2 mg Metoclopramide HCl (Reglan) 10 mg IVPUSH ONETIME ONE Stop: 11/19/18 22:40 Last Admin: 11/19/18 22:40 Dose: 10 mg Misoprostol (Cytotec) Confirm Administered Dose 600 mcg .ROUTE .STK-MED ONE Stop: 11/19/18 23:41 Last Admin: 11/19/18 23:42 Dose: 600 mcg Morphine Sulfate (Duramorph Pf) Confirm Administered Dose 1 mg .ROUTE .STK-MED ONE Stop: 11/19/18 22:57 Nalbuphine HCl (Nubain) 10 mg IVPUSH Q2H PRN PRN Reason: Pain Last Admin: 11/19/18 10:39 Dose: 10 mg Ondansetron HCl (Zofran) 4 mg IVPUSH Q4H PRN PRN Reason: Nausea/Vomiting Last Admin: 11/19/18 15:27 Dose: 4 mg Ondansetron HCl (Zofran) Confirm Administered Dose 4 mg .ROUTE .STK-MED ONE Stop: 11/19/18 22:52 Oxytocin (Pitocin) Confirm Administered Dose 10 unit .ROUTE .STK-MED ONE Stop: 11/19/18 22:52 Sodium Bicarbonate (Sodium Bicarbonate 8.4%) Confirm Administered Dose 50 meq .ROUTE .STK-MED ONE Stop: 11/19/18 22:53 Sodium Chloride (Saline Flush) 10 ml FLUSH ASDIRECTED PRN PRN Reason: Keep Vein Open Sodium Chloride (Saline Flush) 10 ml FLUSH ASDIRECTED PRN PRN Reason: Keep Vein Open - Infant Interaction Infant Disposition, : [place] to Nursery Feeding: Bottle Fed Infant Support Person: Friend - Recovery Exam Fundal Tone: Firm Fundal Level: 1 Fingerbreadths Below Umbilicus Fundal Placement: Midline Lochia Amount: Scant, Small Lochia Color: Rubra/Red Perineum Description: Intact, Minimal Bruising/Swelling Episiotomy/Laceration: None Bladder Status: Voiding Urinary Elimination: Voided - Exam General: Alert, Oriented, Cooperative Lungs: Clear to Auscultation, Normal Respiratory Effort Cardiovascular: Regular Rate, Regular Rhythm GI/Abdominal Exam: Soft, Tender (appropriate post op) Extremities: Normal Inspection Skin: Warm, Dry, Intact Wound/Incisions: Healing Well, No Drainage - Problem List & Annotations (1) Currently in third trimester with unknown gestational age SNOMED Code(s): 970994969, 340357361 Code(s): Z34.93 - ENCNTR FOR SUPRVSN OF NORMAL PREG, UNSP, THIRD TRIMESTER Status: Acute Current Visit: Yes (2) Insufficient care SNOMED Code(s): 5210979438983 Code(s): O09.30 - SUPRVSN OF PREG W INSUFFICIENT ANTENAT CARE, UNSP TRIMESTER Status: Acute Current Visit: Yes Qualifiers: Trimester: third trimester Qualified Code(s): O09.33 - Supervision of with insufficient care, third trimester (3) Positive urine drug screen SNOMED Code(s): 808327905, 756379881, 992657316 Code(s): R82.5 - ELEVATED URINE LEVELS OF DRUG/MEDS/BIOL SUBST Status: Acute Current Visit: Yes (4) Failure to progress in second stage of labor SNOMED Code(s): 810154007 Code(s): O62.2 - OTHER UTERINE INERTIA Status: Acute Current Visit: Yes (5) S/P primary low transverse SNOMED Code(s): 733367979, 04013635, 816175948, 084738332, 902506158 Code(s): Z98.891 - HISTORY OF UTERINE SCAR FROM PREVIOUS SURGERY Status: Acute Current Visit: Yes - Problem List Review Problem List Initiated/Reviewed/Updated: Yes - My Orders Last 24 Hours: My Active Orders 11/20/18 23:30 Ibuprofen [Motrin] 600 mg PO Q6H PRN - Assessment Assessment:: 17 y/o G2 now P2 POD#2 from [facility] - Plan Plan:: Post op * Routine cares * Bottle feeding * Patient's baby started on Morphine overnight for withdrawal. Patient now states she did use percocet through . States this was maybe a tablet or two/day a 2-3 days of a week since early . SW already involved in patient care * Discharge home tomorrow. If patient's baby ends up requiring transfer to higher level or care can be discharged earlier
[2018-11-21] MEDS: Ibuprofen 600 MG Tab PO PRN (08:12)
--- NOTE | 2018-11-21 14:31 | PCM.DCSUM1 ---
Discharge Summary - Discharge Data Discharge Date: 11/21/18 Discharge Disposition: Home, Self-Care 01 Condition: Good - Discharge Diagnosis/Problem(s) (1) Currently in third trimester with unknown gestational age SNOMED Code(s): 684111291, 775679727 ICD Code: Z34.93 - ENCNTR FOR SUPRVSN OF NORMAL PREG, UNSP, THIRD TRIMESTER Status: Acute (2) Insufficient care SNOMED Code(s): 1887224571760 ICD Code: O09.30 - SUPRVSN OF PREG W INSUFFICIENT ANTENAT CARE, UNSP TRIMESTER Status: Acute Qualifiers: Trimester: third trimester Qualified Code(s): O09.33 - Supervision of with insufficient care, third trimester (3) Positive urine drug screen SNOMED Code(s): 187307055, 202839941, 001227635 ICD Code: R82.5 - ELEVATED URINE LEVELS OF DRUG/MEDS/BIOL SUBST Status: Acute (4) Failure to progress in second stage of labor SNOMED Code(s): 733422687 ICD Code: O62.2 - OTHER UTERINE INERTIA Status: Acute (5) S/P primary low transverse SNOMED Code(s): 517978720, 43949582, 600402323, 843637689, 325119544 ICD Code: Z98.891 - HISTORY OF UTERINE SCAR FROM PREVIOUS SURGERY Status: Acute - Patient Summary/Data Operative Procedure(s) Performed: Primary low transverse Complications: None Consults: None Recommended Follow-up Testing/Procedures: Follow up in 1-2 weeks for incision check Hospital Course: Erin is a 17 y/o at uncertain gestational age (~35 wks by US vs full term by patient reported estimated LMP) who presented in labor. Patient appeared initially very uncomfortable on examination and so decision made to keep patient and not transfer her. Antibiotics started for unknown GBS status. Unexpectedly patient made slow change to complete dilation. Was with a very high station when achieved complete dilation, but feeling uncomfortable despite epidural and so began pushing. She continued to have discomfort and had poor pushing effort overall. Pitocin started to aid in pushing. She was allowed breaks/position changes, but was not able to bring baby low into pelvis. After about an hour of actual pushing (spread out over several bits) she asked for c- section as she refused to push further . Did try to ask patient to continue to work towards vaginal delivery, but she declined. done and uncomplicated. she did well. She was actually discharged home on POD#2 as her baby required transfer to higher level of care due to management of opioid withdrawal - Patient Instructions Diet: Regular Diet as Tolerated Activity: No Lifting Over 10 Pounds Activity, Other: Pelvic rest for 6 weeks Driving: Do Not Drive (while taking narcotics ) Showering/Bathing: May Shower, No Tub Bathing/Swimming Wound/Incision Care: Keep Operative Site/Wound Site Clean and Dry Notify Provider of: Fever, Increased Pain, Swelling and Redness, Drainage, Nausea and/or Vomiting - Discharge Plan *PRESCRIPTION DRUG MONITORING PROGRAM REVIEWED*: No *COPY OF PRESCRIPTION DRUG MONITORING REPORT IN PATIENT NOEMI: No Prescriptions/Med Rec: Acetaminophen/oxyCODONE [Percocet 325-5 MG] 2 tab PO Q4H PRN #25 tablet PRN Reason: Pain (Moderate 4-6) Home Medications: Home Meds PNV95/Ferrous Fumarate/FA [ Vitamin Tablet] 1 each PO DAILY 09/29/17 [ History] Acetaminophen/oxyCODONE [Percocet 325-5 MG] 2 tab PO Q4H PRN #25 tablet [Rx] Docusate Sodium [Colace] 100 mg PO Q12H PRN cap 11/21/18 [Rx] Ibuprofen [Motrin] 600 mg PO Q6H PRN tablet 11/21/18 [Rx] Patient Handouts: Delivery, Care After Referrals: Comfort Lincoln MD [Primary Care Provider] - (2 weeks for incision ) - Discharge Summary/Plan Comment DC Time >30 min.: No - Patient Data Vitals - Most Recent: Last Vital Signs Temp 36.9 C 11/21/18 11:29 Pulse 79 11/21/18 11:29 Resp 14 11/21/18 11:29 BP 123/74 11/21/18 11:29 Pulse Ox 96 11/21/18 11:29 Weight - Most Recent: 70.307 kg I&O - Last 24 hours: Intake & Output 11/20/18 11/21/18 11/21/18 22:59 06:59 14:59 Intake Total 1620 Output Total 1875 Balance -255 Med Orders - Current: Current Medications Diphenhydramine HCl (Benadryl) 25 mg IVPUSH Q6H PRN PRN Reason: pruritis Docusate Sodium (Colace) 100 mg PO Q12H PRN PRN Reason: Constipation Emollient Ointment (Lansinoh Hpa) 0 gm TOP ASDIRECTED PRN PRN Reason: Sore Nipples Fentanyl (Sublimaze) 50 mcg IVPUSH Q5M PRN PRN Reason: Pain Ibuprofen (Motrin) 600 mg PO Q6H PRN PRN Reason: mild pain or fever Last Admin: 11/21/18 08:12 Dose: 600 mg Ondansetron HCl (Zofran) 4 mg IVPUSH ONETIME PRN PRN Reason: Nausea/Vomiting Ondansetron HCl (Zofran) 4 mg IV Q8H PRN PRN Reason: Nausea/Vomiting Oxycodone/Acetaminophen (Percocet 325-5 Mg) 2 tab PO Q4H PRN PRN Reason: Pain (moderate 4-6) Last Admin: 11/21/18 11:36 Dose: 2 tab Discontinued Medications Ampicillin Sodium (Ampicillin) Confirm Administered Dose 2 gm IV .STK-MED ONE Stop: 11/19/18 10:33 Last Admin: 11/19/18 14:46 Dose: Not Given Betamethasone Acet/Betameth SodPhos (Celestone Soluspan 6 Mg/Ml) 12 mg IM ONETIME ONE Stop: 11/19/18 10:25 Last Admin: 11/19/18 10:46 Dose: 12 mg Betamethasone Acet/Betameth SodPhos (Celestone Soluspan 6 Mg/Ml) Confirm Administered Dose 30 mg .ROUTE .STK-MED ONE Stop: 11/19/18 10:35 Last Admin: 11/19/18 14:46 Dose: Not Given Cefazolin Sodium (Ancef) Confirm Administered Dose 2 gm .ROUTE .STK-MED ONE Stop: 11/19/18 22:52 Citric Acid/Sodium Citrate (Bicitra Solution) 30 ml PO ONETIME ONE Stop: 11/19/18 22:40 Last Admin: 11/19/18 22:38 Dose: 30 ml Diphenhydramine HCl (Benadryl) 25 mg IVPUSH Q6H PRN PRN Reason: pruritis Ephedrine Sulfate (Ephedrine Sulfate) 5 mg IVPUSH ASDIRECTED PRN PRN Reason: Hypotension Last Admin: 11/19/18 12:36 Dose: 5 mg Ephedrine Sulfate (Ephedrine In Ns) Confirm Administered Dose 25 mg .ROUTE .ST- MED ONE Stop: 11/19/18 23:18 Fentanyl (Sublimaze) 100 mcg EPIDUR Q3H PRN PRN Reason: Pain Last Admin: 11/19/18 12:06 Dose: 100 mcg Fentanyl (Sublimaze) Confirm Administered Dose 100 mcg .ROUTE .[facility] ONE Stop: 11/19/18 22:54 Fentanyl/Bupivacaine HCl (Fentanyl/Bupivacaine/Ns 2 Mcg-0.125% 100 Ml) 100 ml EPIDUR ASDIRECTED PRN PRN Reason: Pain Last Admin: 11/19/18 17:57 Dose: 100 ml Ampicillin Sodium 2 gm/ Sodium (Chloride) 100 mls @ 200 mls/hr IV ONETIME ONE Stop: 11/19/18 10:59 Last Admin: 11/19/18 10:39 Dose: 200 mls/hr Ampicillin Sodium 1 gm/ Sodium (Chloride) 100 mls @ 200 mls/hr IV Q4H JUNG Last Admin: 11/19/18 21:55 Dose: 200 mls/hr Lactated Ringer's (Ringers, Lactated) 1,000 mls @ 100 mls/hr IV ASDIRECTED JUNG Last Admin: 11/19/18 20:17 Dose: 100 mls/hr Oxytocin/Lactated Ringer's (Pitocin In Lr 10 Units/1,000 Ml) 10 unit in 1,000 mls @ 500 mls/hr IV .CONTINUOUS JUNG Sodium Chloride (Normal Saline) Confirm Administered Dose 100 mls @ as directed .ROUTE .[facility] ONE Stop: 11/19/18 10:33 Last Admin: 11/19/18 14:46 Dose: Not Given Oxytocin 10 unit/ Lactated (Ringer's) 1,001 mls @ 12.01 mls/hr IV TITRATE JUNG; Protocol Oxytocin/Lactated Ringer's (Pitocin In Lr 10 Units/1,000 Ml) 10 unit in 1,000 mls @ 12 mls/hr IV TITRATE JUNG; Protocol Last Titration: 11/19/18 22:44 Dose: 0 munits/min, 0 mls/hr Cefazolin Sodium/Dextrose 2 gm (/ Premix) 50 mls @ 100 mls/hr IV ONETIME ONE Stop: 11/19/18 23:08 Lactated Ringer's (Ringers, Lactated) 1,000 mls @ 125 mls/hr IV ASDIRECTED [facility] Last Admin: 11/19/18 23:11 Dose: 999 mls/hr Lactated Ringer's (Ringers, Lactated) Confirm Administered Dose 2,000 mls @ as directed .ROUTE .STK-MED ONE Stop: 11/19/18 22:52 Dextrose/Lactated Ringer's (Dextrose 5%-Lactated Ringers) 1,000 mls @ 125 mls/ hr IV ASDIRECTED [facility] Stop: 11/20/18 09:14 Last Admin: 11/20/18 03:18 Dose: 125 mls/hr Ketorolac Tromethamine (Toradol) Confirm Administered Dose 30 mg .ROUTE .STK- MED ONE Stop: 11/19/18 22:52 Ketorolac Tromethamine (Toradol) 30 mg IVPUSH Q6H [facility] Stop: 11/20/18 17:31 Last Admin: 11/20/18 17:32 Dose: 30 mg Lidocaine/Epinephrine (Xylocaine-Mpf 2%-Epi 1:200,000) Confirm Administered Dose 20 ml .ROUTE .STK-MED ONE Stop: 11/19/18 22:53 Methylergonovine Maleate (Methergine) Confirm Administered Dose 0.2 mg .ROUTE .STK-MED ONE Stop: 11/19/18 23:36 Last Admin: 11/19/18 23:39 Dose: 0.2 mg Metoclopramide HCl (Reglan) 10 mg IVPUSH ONETIME ONE Stop: 11/19/18 22:40 Last Admin: 11/19/18 22:40 Dose: 10 mg Misoprostol (Cytotec) Confirm Administered Dose 600 mcg .ROUTE .STK-MED ONE Stop: 11/19/18 23:41 Last Admin: 11/19/18 23:42 Dose: 600 mcg Morphine Sulfate (Duramorph Pf) Confirm Administered Dose 1 mg .ROUTE .STK-MED ONE Stop: 11/19/18 22:57 Nalbuphine HCl (Nubain) 10 mg IVPUSH Q2H PRN PRN Reason: Pain Last Admin: 11/19/18 10:39 Dose: 10 mg Ondansetron HCl (Zofran) 4 mg IVPUSH Q4H PRN PRN Reason: Nausea/Vomiting Last Admin: 11/19/18 15:27 Dose: 4 mg Ondansetron HCl (Zofran) Confirm Administered Dose 4 mg .ROUTE .STK-MED ONE Stop: 11/19/18 22:52 Oxytocin (Pitocin) Confirm Administered Dose 10 unit .ROUTE .STK-MED ONE Stop: 11/19/18 22:52 Sodium Bicarbonate (Sodium Bicarbonate 8.4%) Confirm Administered Dose 50 meq .ROUTE .STK-MED ONE Stop: 11/19/18 22:53 Sodium Chloride (Saline Flush) 10 ml FLUSH ASDIRECTED PRN PRN Reason: Keep Vein Open Sodium Chloride (Saline Flush) 10 ml FLUSH ASDIRECTED PRN PRN Reason: Keep Vein Open
[2018-11-21 15:07] VITALS: BP 115/79
== END 2018-11-21 15:40 | disposition home or self-care (01) | DRG 788 ==
LOC: JD.OBCHECK 10:16 → JD.OB 10:18 → JD.OBCHECK 10:25 → OBSVTOIN 23:30 → JD.OB 11-20 00:30
PROVIDERS: ADMIT Obstetrics & Gynecology; ATTEND Obstetrics & Gynecology
PROC: 10D00Z1 Extraction of Products of Conception, Low, Open Approach (ICD-10-PCS; principal; 2018-11-19)
DX: O77.0 Labor and delivery complicated by meconium in amniotic fluid (principal); O99.334 Smoking (tobacco) complicating childbirth; O99.52 Diseases of the respiratory system complicating childbirth; J45.909 Unspecified asthma, uncomplicated; O62.2 Other uterine inertia; F17.210 Nicotine dependence, cigarettes, uncomplicated; Z37.0 Single live birth; Z3A.35 35 weeks gestation of pregnancy
CPT/HCPCS: 01967; 01968; 36415; 51701; 51702; 59025; 80306; 85027; 86592; 86803; 86850; 86900; 86901; 87653; A9270-GY; G0433; J0290; J0690; J1885; J2210; J2274; J2300; J2405; J2590; J2765; J3010; J3490; J7030; J7042; J7050; J7120

== ENCOUNTER 2021-11-23 23:20 | Emergency (ER) | payer OTHER ==
[2021-11-23 23:37] VITALS: BP 90/61; PULSE 89
[2021-11-23] MEDS ORDERED: Sodium Chloride 0.9% 1,000 ML IV SCH (23:45)
[2021-11-23] MEDS ORDERED: Sodium Chloride 0.9% 10 ML Syringe FLUSH PRN (23:45)
== END 2021-11-24 05:16 | disposition home or self-care (01) ==
LOC: JD.ED 23:20
DX: F15.90 Other stimulant use, unspecified, uncomplicated (principal); K21.9 Gastro-esophageal reflux disease without esophagitis; Z79.899 Other long term (current) drug therapy; Z88.0 Allergy status to penicillin; Z88.2 Allergy status to sulfonamides; Z88.8 Allergy status to other drugs, medicaments and biological substances; Z72.0 Tobacco use
CPT/HCPCS: 36415; 80053; 80306; 80307; 84703; 85025; 99284; J3490; J7030; 99282

== ENCOUNTER 2022-04-27 07:58 | Emergency (ER) | payer SELFPAY ==
[2022-04-27 08:10] VITALS: BP 139/79; PULSE 121
[2022-04-27] MEDS ORDERED: HYDROmorphone 1 MG/ML Syringe IM ONE (08:24)
[2022-04-27] MEDS ORDERED: Penicillin G Benzathine 1,200,000 Units/2 ML Syringe IM ONE (08:25)
== END 2022-04-27 08:56 | disposition home or self-care (01) ==
LOC: JD.ED 07:58
DX: K04.7 Periapical abscess without sinus (principal); A53.9 Syphilis, unspecified; J45.909 Unspecified asthma, uncomplicated; Z91.018 Allergy to other foods; Z91.013 Allergy to seafood
CPT/HCPCS: 96372; 99282; J0561; J1170